=== PATIENT | female | born 1950 | race Caucasian/White ===

== ENCOUNTER → 2018-05-01 | Outpatient (CLI) | payer MEDICARE, OTHER ==
[~2018-05-01] MED LIST: ASPI-1121 PO; CELEBREX PO; CEP500 PO; CINN500C12 PO; DIG25 PO; ENO30I SC; EST3 PO; ESTR-25 PO; INSU100V30 SQ; LOR5 PO; MAGN500T6 PO; METO25TA91 PO; MULT-1335 PO; OMEG100027 PO; PER PO; PSYL0.5240 PO; TUM500 PO; WAR25 PO; WAR5 PO; WARF2.5T62 PO; [UNRECOGNIZED DRUG - CODE] PO
--- NOTE | 2018-05-05 15:59 | RADIOLOGY IMAGING REPORT ---
FACILITY: [facility] PATIENT NAME: SILVESTRE DURAN : [id number] MR: [id number] V: [id number] EXAM DATE: [id number] ORDERING PHYSICIAN: LAVON GIRON TECHNOLOGIST: Arlene Amaya PROCEDURE:BILATERAL DIGITAL SCREENING MAMMOGRAM WITH CAD ASSISTED INTERPRETATION & 3D TOMOSYNTHESIS COMPARISON:Prior mammogram 03/13/17, 11/06/15. INDICATIONS:screening TECHNIQUE: Routine CC & MLO views of both breasts was performed using 3D technique. FINDINGS: The breast tissue is almost entirely fatty replaced. Small nodule to macrocalcification in the Left breast 3 o'clock position anterior depth is stable. No new enlarging masses or suspicious microcalcifications. DIAGNOSTIC CATEGORY 2--BENIGN FINDING. RECOMMENDATIONS: ROUTINE MAMMOGRAM AND CLINICAL EVALUATION IN 1 YEAR. IMPRESSION: BIRADS 2: Benign finding. Dictated by: Robbi Sarmiento M.D. on 05/05/2018 at 10:21 Transcribed by: ROSHAN on 05/05/2018 at 15:57 Approved by: Robbi Sarmiento M.D. on 05/05/2018 at 15:58 [facility]
== END ==
LOC: MAMO 03:27
PROVIDERS: ATTEND Family Medicine
DX: Z12.31 Encounter for screening mammogram for malignant neoplasm of breast (principal); R92.1 Mammographic calcification found on diagnostic imaging of breast
CPT/HCPCS: 77063; 77067

== ENCOUNTER → 2019-02-10 | Outpatient (CLI) | payer MEDICARE, OTHER | LOC: US 00:20 | PROVIDERS: ATTEND Internal Medicine Cardiovascular Disease | DX: I51.7 Cardiomegaly (principal) | CPT/HCPCS: 93306 ==